=== PATIENT | male | born 1965 | race African-American/Black ===

== ENCOUNTER 2023-09-13 18:05 | Emergency (ER) | payer MEDICARE, MEDICAID ==
[~2023-09-13] VITALS: Ht 172.7 cm; Wt 74.0 kg
[2023-09-13 18:09] VITALS: O2SAT 96
[2023-09-13] MEDS ORDERED: DIPHENHYDRAMINE 50MG/ML VIAL IM ONE (20:45)
[2023-09-13] MEDS ORDERED: FAMO-135 MT (21:10)
[2023-09-13] MEDS ORDERED: DIPH25CA83 MT (21:10)
[2023-09-13] MEDS ORDERED: EPIN0.1517 IM (21:10)
[2023-09-13] MEDS ORDERED: PRED10TA MT (21:10)
[2023-09-13 21:28] VITALS: BP 127/80; PULSE 98; RESP 20; TEMP 98.7
== END 2023-09-13 21:29 | disposition left against medical advice (07) ==
LOC: ER 18:05
DX: T78.3XXA Angioneurotic edema, initial encounter (principal); X58.XXXA Exposure to other specified factors, initial encounter
CPT/HCPCS: 99283; 96372; J1200